=== PATIENT | female | born 1975 | race Caucasian/White ===

== ENCOUNTER 2019-06-09 02:57 | Emergency (ER) | payer BC ==
[2019-06-09] MEDS ORDERED: Sodium Chloride 0.9% 1,000 ML IV ONE (03:53)
[2019-06-09] MEDS ORDERED: Ketorolac 30 MG/ML SDV IVPUSH ONE (03:53)
[2019-06-09] MEDS ORDERED: Sodium Chloride 0.9% 10 ML Syringe FLUSH PRN (03:53)
[2019-06-09] MEDS ORDERED: Prochlorperazine 10 MG/2 ML SDV IVPUSH ONE (03:53)
[2019-06-09] MEDS ORDERED: diphenhydrAMINE 50 MG/ML SDV IVPUSH ONE (03:53)
--- NOTE | 2019-06-09 05:46 | EDM.PDOC ---
ED HPI GENERAL MEDICAL PROBLEM - General Chief Complaint: Headache Stated Complaint: MIGRAINE Time Seen by Provider: 06/09/19 03:53 Source of Information: Reports: Patient History Limitations: Reports: No Limitations - History of Present Illness INITIAL COMMENTS - FREE TEXT/NARRATIVE: This lady presents with a headache been going on for several hours. It's behind her right eye goes around the right side of the head down to the right side of the suboccipital area. This is typical of her past headaches. She usually gets headaches right before her periods which is what she is having now. She said usually Toradol recommend Benadryl and fluids help. She does have some Compazine at home. She's not having any neurologic symptoms. Her vision is okay she's not seeing any kind of a scotoma. migraine Pain Score (Numeric/FACES): 5 - Related Data Allergies Allergy/AdvReac Type Severity Reaction Status Date / Time erythromycin base Allergy Diarrhea Verified 06/09/19 03:32 levofloxacin [From Levaquin] Allergy Hives Verified 06/09/19 03:32 oxymetazoline Allergy Itching Verified 06/09/19 03:32 [From Afrin (oxymetazoline)] Home Meds: Home Meds Cholecalciferol (Vitamin D3) [Vitamin D3] 2,000 unit PO BEDTIME 06/09/19 [ History] Cyclobenzaprine [Flexeril] 5 mg PO BEDTIME 06/09/19 [History] Divalproex Sodium [Depakote] 500 mg PO BEDTIME 06/09/19 [History] Docusate Sodium [Colace] 100 mg PO BEDTIME 06/09/19 [History] Eletriptan HBr [Relpax] 20 mg PO DAILY PRN 06/09/19 [History] Escitalopram Oxalate [Lexapro] 20 mg PO DAILY 06/09/19 [History] Etanercept [Enbrel] 25 mg SQ WEEKLY 06/09/19 [History] Prochlorperazine [Compazine] 10 mg PO Q8H PRN 06/09/19 [History] buPROPion HCl [Wellbutrin Xl] 300 mg PO DAILY 06/09/19 [History] busPIRone [Buspar] 10 mg PO TID 06/09/19 [History] Past Medical History Gastrointestinal History: Reports: Chronic Constipation, GERD [employer]IAN History: Reports: Musculoskeletal History: Reports: RA Neurological History: Reports: Concussion, Migraines Psychiatric History: Reports: Anxiety, Depression Endocrine/Metabolic History: Reports: Vitamin D Deficiency Immunologic History: Reports: Immunosuppression, Other (See Below) Other Immunologic History: RA meds - Past Surgical History GI Surgical History: Reports: Hernia, Inguinal Social & Family History - Tobacco Use Smoking Status *Q: Never Smoker - Caffeine Use Caffeine Use: Reports: Coffee - Recreational Drug Use Recreational Drug Use: No ED ROS GENERAL - Review of Systems Review Of Systems: ROS reveals no pertinent complaints other than HPI. - Physical Exam Exam: See Below Exam Limited By: No Limitations General Appearance: Alert, WD/WN, Mild Distress Eye Exam: Bilateral Eye: EOMI, PERRL Throat/Mouth: Normal Oropharynx Head Exam: Atraumatic Neck: Normal Inspection Respiratory/Chest: Lungs Clear Cardiovascular: Regular Rate, Rhythm, No Murmur Neuro Exam (Abbreviated): Alert, Oriented, CN II-XII Intact, Normal Cognition, No Motor/Sensory Deficits Psychiatric: Normal Affect Skin Exam: Warm, Dry Course - Vital Signs Last Recorded V/S: Last Vital Signs Temp 35.8 C 06/09/19 03:37 Pulse 86 06/09/19 03:37 Resp 18 06/09/19 03:37 BP 117/77 06/09/19 03:37 Pulse Ox 98 06/09/19 03:37 - Orders/Labs/Meds Orders: Active Orders 24 hr Category Date Time Status Sodium Chloride 0.9% [Saline Flush] Med 06/09/19 03:53 Ordered 10 ml FLUSH ASDIRECTED PRN Saline Lock Insert [OM.PC] Urgent Oth 06/09/19 03:53 Ordered Medication Orders Sodium Chloride (Saline Flush) 10 ml FLUSH ASDIRECTED PRN PRN Reason: Keep Vein Open Last Admin: 06/09/19 04:08 Dose: 10 ml Meds: Medications Generic Name Dose Route Start Last Admin Trade Name Freq PRN Reason Stop Dose Admin Sodium Chloride 10 ml 06/09/19 03:53 06/09/19 04:08 Saline Flush FLUSH 10 ml ASDIRECTED PRN Administration Keep Vein Open Discontinued Medications Generic Name Dose Route Start Last Admin Trade Name Freq PRN Reason Stop Dose Admin Diphenhydramine HCl 50 mg 06/09/19 03:53 06/09/19 04:08 Benadryl IVPUSH 06/09/19 03:54 50 mg ONETIME ONE Administration Sodium Chloride 1,000 mls @ 999 mls/hr 06/09/19 03:53 06/09/19 04:01 Normal Saline IV 06/09/19 04:53 999 mls/hr .BOLUS ONE Administration Ketorolac Tromethamine 30 mg 06/09/19 03:53 06/09/19 04:07 Toradol IVPUSH 06/09/19 03:54 30 mg ONETIME ONE Administration Prochlorperazine Edisylate 10 mg 06/09/19 03:53 06/09/19 04:04 Compazine IVPUSH 06/09/19 03:54 10 mg ONETIME ONE Administration - Re-Assessments/Exams Free Text/Narrative Re-Assessment/Exam: 06/09/19 05:44 An IV was established she received 1 L IV normal saline over 1 hour also Toradol 30 mg and Compazine 10 mg and Benadryl 50 mg IV. At time of discharge her headache is almost completely relieved. Departure - Departure Time of Disposition: 05:45 Disposition: Home, Self-Care 01 Condition: Fair Clinical Impression: Migraine - Discharge Information Referrals: PCP,None [Primary Care Provider] - Additional Instructions: You received Compazine and Benadryl IV both which cause sedation. The Compazine will continue to cause sedation and can impair driving for the next 12 hours. If needed you could repeat the Compazine at about noon today. You can also use Tylenol and ibuprofen as needed area - My Orders Last 24 Hours: My Active Orders 06/09/19 03:53 Sodium Chloride 0.9% [Saline Flush] 10 ml FLUSH ASDIRECTED PRN Saline Lock Insert [OM.PC] Urgent - Assessment/Plan Last 24 Hours: My Active Orders 06/09/19 03:53 Sodium Chloride 0.9% [Saline Flush] 10 ml FLUSH ASDIRECTED PRN Saline Lock Insert [OM.PC] Urgent
== END 2019-06-09 06:00 | disposition home or self-care (01) ==
LOC: JP.ED 02:57
DX: G43.909 Migraine, unspecified, not intractable, without status migrainosus (principal); F41.9 Anxiety disorder, unspecified; F32.9 Major depressive disorder, single episode, unspecified; Z88.1 Allergy status to other antibiotic agents; Z88.8 Allergy status to other drugs, medicaments and biological substances; Z79.899 Other long term (current) drug therapy
CPT/HCPCS: 96361; 96374; 96375; 99283; J0780; J1200; J1885; J7030